=== PATIENT | male | born 1960 | race Caucasian/White ===

== ENCOUNTER → 2019-12-26 13:28 | Outpatient (CLI) | payer MEDICARE, SELFPAY ==
[2019-12-27 12:21] LABS: COVID19 Sendout Not Detected (Not Detect)
== END ==
PROVIDERS: Visit Provider Physician Assistant
DX: Z11.59 Encounter for screening for other viral diseases (principal)
CPT/HCPCS: 87635

== ENCOUNTER 2019-12-29 11:14 | Day surgery (SDC) | payer MEDICARE, SELFPAY ==
[2019-12-27 12:43] VITALS: BMI 25.7
[2019-12-29] VITALS (10 sets, daily range): BP systolic 93–142; BP diastolic 40–74; PULSE 53–61; RESP 9–20; TEMP 36.3–36.6; O2SAT 94–99; BMI 25.7
--- NOTE | 2019-12-29 | DI.RAD.S_ITS ---
PROCEDURE: XR CERVICAL SPINE 2V OR 3V INDICATIONS: C56 ANTERIOR DISCECTOMY W/FUSION AND BONE GRAFT. TECHNIQUE: 2 intraoperative fluoroscopic view(s) of the cervical spine were acquired. COMPARISON: None. FINDINGS: Bones: 2 intraoperative fluoroscopic views demonstrate instrumentation of the lower cervical spine. IMPRESSION: Intraoperative fluoroscopic views of anterior discectomy and fusion of the lower cervical spine. Dictated by: Aubree Wright M.D. on 12/29/2019 at 16:23 Approved by: Aubree Wright M.D. on 12/29/2019 at 16:24
[2019-12-29] MEDS: LACTATED RINGERS 1,000 ML 42 ML IV (11:27)
[2019-12-29] MEDS: ACETAMINOPHEN 325 MG TABLET 975 MG PO (11:28)
--- NOTE | 2019-12-29 11:47 | PM.PREOP ---
Pre-operative Note COVID-19 COVID-19 status: Negative Result date/Date tested (Pos, Neg/Pending): 12/26/19 Interval Note History & Physical reviewed/Exam performed by Physician: Yes Changes to H&P: No
[2019-12-29] MEDS: CLINDAMYCIN 900 MG/50 ML PIGGYBACK 50 MG IV (12:40)
--- NOTE | 2019-12-29 13:13 | SUR.OPER ---
Supine, head on gel donut. Arms padded with gel pads, tucked at sides, towel roll under shoulders. Safety belt at thigh. Legs uncrossed.
[2019-12-29] MEDS: BUPIVACAINE 0.25% W/ EPI 30 ML VIAL 60 ML INJ (13:22)
[2019-12-29] MEDS: SODIUM CHLORIDE 0.9% 1,000 ML, GENTAMICIN 80 MG IRR (13:24)
[2019-12-29] MEDS: THROMBIN (RECOMBINANT) 5,000 UNIT VIAL 5000 UNIT TOP (13:24)
--- NOTE | 2019-12-29 13:50 | P.OP_ITS ---
Operative Date/Time/Diagnoses Date of procedure: 12/29/19 Time of procedure: 13:50 Pre-op diagnosis: Cervical disc herniation with radiculopathy History of cervical fusion Post-op diagnosis: same Procedure & Clinicians Procedure: C5-6 ACDF with cage Iliac crest bone graft aspirate Use of microscope Same procedure as scheduled: Yes Indications: [age] year old male with intractable pain from cervical disc herniation. They had failed conservative management and requested operative intervention. Risks and benefits of surgery were discussed and appropriate consents were obtained. Surgeon: Cyrus Ramos Supply Chain Business Analyst: Beata Maddox Anesthesia Type: General Operative Notes Findings: None Closure Type: primary Specimen(s): none sent Prosthetic devices, grafts, tissues, transplants, or devices: Anmol SHANI-C Estimated Blood Loss (mL): 5 Procedure in detail: Patient was brought to the operating room and intubated on the table. A time-out was performed. Preoperative antibiotics were given. The neck was prepped and draped in the standard sterile fashion. Using a skin fold, we made a 3 cm oblique incision on the left side. We used Bovie to go through the platysma and then did a standard anterolateral blunt dissection down to the precervical fascia. Fascia was nicked and elevated up. A marker was placed and x-ray was taken for localization. We then subperiosteally elevated up the longus colli muscles. Self-retaining retractors were placed. Hickman pins were placed. We then brought in the microscope. A scalpel used to perform an annulotomy. We then used a combination of pituitaries and curettes and Kerrison to perform a complete anterior diskectomy at C5-6. We used the bur to take down the posterior osteophytes. We took down the PLL and used Kerrison to remove any posterior disc material and osteophytes. At the end we could from the nerve hook cephalad caudally and out the foramen and everything was opened. A small stab incision was made over the left anterior iliac crest. A Jamshidi needle was advanced into the pelvis and 2 mL of bone marrow was aspirated. We then used the trials. We then packed a 14 x 17 x 6 mm SHANI-C cage with Primagen bone graft and the iliac crest harvest. The cage was placed under fluoroscopic guidance. We then placed our two locking plates. The self- retaining retractors and Hickman pins were removed and final x-rays taken. The wound was irrigated. There was no bleeding. The carotid was beating nicely. The platysma was closed. The superficial was closed. The skin was closed. A sterile dressing was placed. They were then extubated and brought to recovery room with no complications. Complications: none Post-operative Condition: stable Disposition: PACU Plan for aftercare: Outpatient. Limited lifting. Soft collar for comfort.
[2019-12-29] MEDS: OXYCODONE IR 5 MG TABLET PO (14:27)
--- NOTE | 2019-12-29 15:44 | SUR.PHASEII ---
Pt dressed and ready to go, at bs and dc instructions given to both along with rxs both verbalize understanding. Sitting in [facility] waiting for friend to p/u
--- NOTE | 2019-12-29 15:52 | SUR.PHASEII ---
Pt dcd via wc in stable condition with at side to private vehicle at [facility]
== END 2019-12-29 15:52 | disposition home or self-care (01) ==
PROVIDERS: PCP Family Medicine Adult Medicine; Referring Provider Family Medicine Adult Medicine; Visit Provider Orthopaedic Surgery
PROC: (CPT 22551; principal; 2019-12-29 12:15)
DX: M48.02 Spinal stenosis, cervical region (principal); Z98.1 Arthrodesis status; I10 Essential (primary) hypertension; F41.9 Anxiety disorder, unspecified; K21.9 Gastro-esophageal reflux disease without esophagitis
CPT/HCPCS: 22551; 22853; 20939; 72040; 76000; C1776; J0330; J1100; J2405; J2704

== ENCOUNTER 2020-09-12 10:16 | Emergency (ER) | payer MEDICARE, SELFPAY ==
--- NOTE | 2020-09-12 10:18 | ED_ITS ---
HPI - Trauma General Chief Complaint: Fall Stated Complaint: THROWN OFF HORSE, LANDED ON BACK OF HEAD Time Seen by Provider: 09/12/20 10:16 Source: patient and family Mode of arrival: Ambulatory Limitations: no limitations History of Present Illness HPI narrative: 59-year-old male nonsmoker with history of hypothryoid and GERD presents with significant other and a chief complaint of a fall with a head injury suffered on Thursday. He states he was standing next to a large pony which move into him and knocked him over, causing him to fall back striking his head on the ground. He thinks he briefly lost consciousness but certainly not for very long and has been at his baseline neurologically since. He has felt a bit dizzy and nauseated since the event but has had no episodes of vomiting. He does have some midline neck pain and a history of prior cervical surgeries for disc problems. He takes no blood thinners. He occasionally has some tingling in his left arm but denies any weakness or radiation of pain. 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 MD complaint: fall Onset (ago): day(s) Loss of Consciousness: yes Location: head and neck Severity: mild Context: fall Associated symptoms: nausea and dizziness Related Data Home Medications Medication Instructions Recorded Confirmed atorvastatin 10 mg PO BEDTIME 09/08/19 09/11/20 citalopram 20 mg PO BEDTIME 09/08/19 09/11/20 fluticasone propionate [Flonase 1 - 2 spray INTRANASAL DAILY PRN 09/08/19 09/11/20 Allergy Relief] gabapentin 600 mg PO SEEINSTR 09/08/19 09/11/20 levothyroxine 75 mcg PO DAILY 09/08/19 09/11/20 hydroxyzine HCl 25 mg PO BEDTIME PRN 12/01/19 09/11/20 melatonin 6 mg PO BEDTIME 12/01/19 09/11/20 pantoprazole 40 mg PO DAILY 12/01/19 09/11/20 Previous Rx's Medication Instructions Recorded hydroxyzine pamoate [Vistaril] 25 mg PO Q4HR #15 cap 12/29/19 ondansetron 4 mg PO TID-QID PRN #10 tab 09/12/20 Allergies Allergy/AdvReac Type Severity Reaction Status Date / Time hydrocodone Allergy Pt does Verified 09/11/20 16:05 not remember reaction meloxicam Allergy Pt does Verified 09/11/20 16:05 not remember reaction cefuroxime AdvReac Severe Diarrhea Verified 09/11/20 16:05 codeine AdvReac Intermediate Makes me Verified 09/11/20 16:05 feel nervous Review of Systems Constitutional Constitutional: Denies chills, Denies fatigue, Denies fever(s), Denies frequent falls, Denies lethargy and Denies weakness Eyes Eyes: Denies change in vision, Denies eye discharge, Denies irritation and Denies loss of vision ENT Ears, Nose, Mouth, and Throat: Denies change in voice, Reports dizziness, Reports neck pain, Denies sore throat and Denies throat swelling Cardiovascular Cardiovascular: Denies chest pain, Denies irregular heart rhythm, Denies lightheadedness, Denies palpitations, Denies dyspnea, Denies dyspnea on exertion and Denies orthopnea Respiratory Respiratory: Denies cough, Denies dyspnea, Denies dyspnea on exertion and Denies wheezing Gastrointestinal Gastrointestinal: Denies abdominal pain, Denies change in bowel habits, Denies diarrhea, Reports nausea and Denies vomiting Musculoskeletal Musculoskeletal: Reports neck pain and Denies numbness Integumentary/Breasts Skin/Breast: Denies pruritus, Denies erythema, Denies rash and Reports wounds Neurologic Neurologic: Denies behavioral changes, Denies confusion, Reports dizziness, Denies frequent falls, Denies loss of vision, Denies numbness and Denies weakness Psychiatric Psychiatric: Denies anxiety, Denies behavioral changes, Denies confusion, Denies depression, Denies homicidal ideation and Denies suicidal ideation Endocrine Endocrine: Denies fatigue, Denies flushing and Denies palpitations Hematologic/Lymphatic Hematologic/Lymphatic: Denies easy bruising Allergic/Immunologic Allergic/Immunologic: Denies urticaria, Denies throat swelling and Denies wheezing Patient History Medical History Anxiety Arthritis Depression GERD (gastroesophageal reflux disease) HLD (hyperlipidemia) HTN (hypertension) Hypothyroid Left inguinal hernia Memory deficit Migraines Numbness and tingling Raynaud's disease Surgical History History of arthroscopy of left shoulder (2015) Hx of hernia repair (1996) Hx of repair of left rotator cuff (2000) S/P cervical spinal fusion (2014) Social History household members: spouse Smoking Status: Never smoker Smoking Status: Never smoker Substance Use Type: does not use Exam Narrative Exam Narrative: GENERAL: [59] year old patient appears stated age. Well- developed patient, in mild distress. GCS 15 HEAD: Small superficial abrasion on superior occiput, no bleeding, no evidence of depressed skull fracture, no hematoma. EYES: Pupils equal round and reactive. Extraocular motions intact. No scleral icterus. No injection or drainage. ENT: Nose without bleeding, purulent drainage. Throat without erythema, tonsillar hypertrophy or exudate. Airway patent. NECK: Trachea midline. Mild midline tenderness, no step-offs or crepitance, no change with axial load CARDIOVASCULAR: Regular rate and rhythm without murmurs, gallops, or rubs. RESPIRATORY: Clear to auscultation. Breath sounds equal bilaterally. No wheezes, rales, or rhonchi. GASTROINTESTINAL: Abdomen soft, non-tender, nondistended. EXTREMITIES: No edema or joint tenderness. BACK: Nontender without deformity or crepitance. No flank tenderness. NEURO: AOx3. SKIN: No rash or erythema of visible areas Initial Vital Signs Initial Vital Signs: Vital Signs Temperature 96.9 F L 09/12/20 10:25 Pulse Rate 70 09/12/20 10:25 Respiratory Rate 16 09/12/20 10:25 Blood Pressure 154/82 H 09/12/20 10:25 Pulse Oximetry 99 09/12/20 10:25 Course Orders Ordered: ED Orders 09/12/20 10:22 CT head/brain wo con Stat 09/12/20 10:44 CT cervical spine wo con Stat Discontinued Medications Diphtheria/Tetanus/Acell Pertussis (Tet,Diph,Pertuss(Acell),Vac/Pf 0.5 Ml Syringe) 0.5 ml IM .ONCE ONE Stop: 09/12/20 10:23 Last Admin: 09/12/20 10:42 Dose: 0.5 ml Documented by: Vital Signs Vital signs: Vital Signs - 8 hr 09/12/20 10:25 Temperature 96.9 F L Pulse Rate 70 Respiratory Rate 16 Blood Pressure 154/82 H Pulse Oximetry 99 MDM - Trauma Imaging Data CT scan - head: Radiologist's Impression: [address] [id number] Scan ReportSigned Patient: Jose Ayala [facility]#: [id number]: 9Acct:[id number]/Sex: 59 / MDate of Service: 09/12/20Loc: EDAccession Number: [id number] Procedure: CT head/brain wo con Ordering Provider: Gonzalo Anna D.O. PROCEDURE: CT HEAD/BRAIN WO CON INDICATIONS: Fall on Thursday with head injury, dizzy, nauseated. Positive loss of consciousness. TECHNIQUE: Noncontrast 4.5 mm thick angled axial sections acquired from the foramen magnum to the vertex, with coronal and sagittal reformats. For radiation dose reduction, the following was used: automated exposure control, adjustment of mA and/or kV according to patient size. COMPARISON: [facility], CT, BRAIN ([facility]), 02/21/2015, 19:46. FINDINGS: Image quality: Mild streak artifact can be seen through the skull base. CSF spaces: Basal cisterns are patent. No extra-axial fluid collections. The ventricles are symmetric in size and shape. Brain: No intracranial bleeds or masses. There is cerebral volume loss for a ge, with resultant ventricular and sulcal prominence. There are periventricular and deep white matter chronic small vessel ischemic changes. There is intracranial internal carotid artery atherosclerosis. Skull and face: Calvarium and visualized facial bones appear intact, without suspicious lesions. Sinuses: Visualized sinuses and mastoids are clear. IMPRESSION: No acute intracranial process is seen. Dictated by: Keagan Godinez M.D. on 09/12/2020 at 9:40 Approved by: Keagan Godinez M.D. on 09/12/2020 at 9:42 CT - cervical spine: Radiologist's Impression: [address] [id number] Scan ReportSigned Patient: Jose Ayala [facility]#: [id number]: 9Acct:[id number]/Sex: 59 / MDate of Service: 09/12/20Loc: EDAccession Number: [id number] Procedure: CT cervical spine wo con Ordering Provider: Gonzalo Anna D.O. PROCEDURE: CT CERVICAL SPINE WO CON INDICATIONS: fall on Thursday with midline neck pain TECHNIQUE: Noncontrast 3 mm thick sections acquired from the skull base to the T4 level. Sagittal and coronal reformats were then constructed. For radiation dose reduction, the following was used: automated exposure control, adjustment of mA and/or kV according to patient size. COMPARISON: None. FINDINGS: Image quality: Excellent. Bones: C5-C7 ACDF. Prominent anterior vertebral body osteophytes. Posterior disc osteophyte complex at C5-C6. Minimal central canal narrowing. Facet joint hypertrophy. No fractures or dislocations. Visualized superior ribs are intact. Soft tissues: Prevertebral soft tissues are normal in thickness. No paravertebral hematomas. No apical pneumothoraces. IMPRESSION: No acute osseous abnormality. Moderate degenerative change. C5-C7 ACDF. Dictated by: Dong Forde M.D. on 09/12/2020 at 10:59 Approved by: Dong Forde M.D. on 09/12/2020 at 11:04 Discharge Plan Departure Patient Disposition: Home Clinical Impression: Head injury due to trauma Qualifiers: Encounter type: initial encounter Qualified Code(s): S09.90XA - Unspecified injury of head, initial encounter Concussion Qualifiers: Encounter type: initial encounter Loss of consciousness presence/duration: with LOC of 30 min or less Qualified Code(s): S06.0X1A - Concussion with loss of consciousness of 30 minutes or less, initial encounter Abrasion of scalp Qualifiers: Encounter type: initial encounter Qualified Code(s): S00.01XA - Abrasion of scalp, initial encounter Instructions: Concussion Activity Restrictions/Additional Instructions: *You have been diagnosed with [mild concussion with scalp abrasion] *What to do: *Please continue to take your regular medications as directed. [ x] New medication prescriptions sent to your pharmacy: [ [facility] in [facility]] [ ] New medication written as a paper prescription [ ] No new medications given You have a slight concussion and will likely have a mild headache and some nausea for a few days. Avoiding highly stimulating activities and even TV or computers may be helpful in minimizing your symptoms. Avoid activities that will put you at risk for another head injury for at least a week. You can take tylenol or motrin for headache or the prescription provided for nausea/vomiting. Return for worsening or persistent symptoms *Please follow up with your primary care provider in 2-3 days, call for an appointment. Let them know you were seen in the Emergency Department and that we ask that you be seen in follow up. We will electronically transmit a record of today's note if your PCP is in our system *If you do not have a primary care provider please contact the [facility] Resource line at [phone]. They will ask some questions about your medical history and help get you set up with a doctor in the community. *Return to Emergency Department if you should have any new, worsening or concerning symptoms, such as [fever greater than 101 F, shaking chills, worsening pain, persistent vomiting or other bothersome symptoms] Prescriptions: New ondansetron 4 mg tablet,disintegrating 4 mg PO TID-QID PRN (Reason: nausea and vomiting) Qty: 10 RF: 0 No Action atorvastatin 10 mg Tablet 10 mg PO BEDTIME RF: 0 levothyroxine 75 mcg Tablet 75 mcg PO DAILY RF: 0 citalopram 20 mg Tablet 20 mg PO BEDTIME RF: 0 gabapentin 300 mg Capsule 600 mg PO SEEINSTR RF: 0 fluticasone propionate [Flonase Allergy Relief] 50 mcg/actuation [place],Suspension 1 - 2 spray INTRANASAL DAILY PRN (Reason: Allergies) RF: 0 melatonin 3 mg Tablet 6 mg PO BEDTIME RF: 0 pantoprazole 40 mg Tablet,Delayed Release (Dr/Ec) 40 mg PO DAILY RF: 0 hydroxyzine HCl 25 mg Tablet 25 mg PO BEDTIME PRN (Reason: Anxiety) RF: 0 hydroxyzine pamoate [Vistaril] 25 mg capsule 25 mg PO Q4HR Qty: 15 RF: 0 Referrals: Isaac Major DO [Primary Care Provider] -
--- NOTE | 2020-09-12 10:22 | DI.CT.S_ITS ---
PROCEDURE: CT HEAD/BRAIN WO CON INDICATIONS: Fall on Thursday with head injury, dizzy, nauseated. Positive loss of consciousness. TECHNIQUE: Noncontrast 4.5 mm thick angled axial sections acquired from the foramen magnum to the vertex, with coronal and sagittal reformats. For radiation dose reduction, the following was used: automated exposure control, adjustment of mA and/or kV according to patient size. COMPARISON: [facility], CT, BRAIN ([facility]), 02/21/2015, 19:46. FINDINGS: Image quality: Mild streak artifact can be seen through the skull base. CSF spaces: Basal cisterns are patent. No extra-axial fluid collections. The ventricles are symmetric in size and shape. Brain: No intracranial bleeds or masses. There is cerebral volume loss for age, with resultant ventricular and sulcal prominence. There are periventricular and deep white matter chronic small vessel ischemic changes. There is intracranial internal carotid artery atherosclerosis. Skull and face: Calvarium and visualized facial bones appear intact, without suspicious lesions. Sinuses: Visualized sinuses and mastoids are clear. IMPRESSION: No acute intracranial process is seen. Dictated by: Keagan Godinez M.D. on 09/12/2020 at 9:40 Approved by: Keagan Godinez M.D. on 09/12/2020 at 9:42
[2020-09-12 10:25] VITALS: BP 154/82; PULSE 70; RESP 16; TEMP 36.1; O2SAT 99; BMI 26.6
[2020-09-12] MEDS: TET,DIPH,PERTUSS(ACELL),VAC/PF 0.5 ML SYRINGE IM (10:42)
--- NOTE | 2020-09-12 10:44 | DI.CT.S_ITS ---
PROCEDURE: CT CERVICAL SPINE WO CON INDICATIONS: fall on Thursday with midline neck pain TECHNIQUE: Noncontrast 3 mm thick sections acquired from the skull base to the T4 level. Sagittal and coronal reformats were then constructed. For radiation dose reduction, the following was used: automated exposure control, adjustment of mA and/or kV according to patient size. COMPARISON: None. FINDINGS: Image quality: Excellent. Bones: C5-C7 ACDF. Prominent anterior vertebral body osteophytes. Posterior disc osteophyte complex at C5-C6. Minimal central canal narrowing. Facet joint hypertrophy. No fractures or dislocations. Visualized superior ribs are intact. Soft tissues: Prevertebral soft tissues are normal in thickness. No paravertebral hematomas. No apical pneumothoraces. IMPRESSION: No acute osseous abnormality. Moderate degenerative change. C5-C7 ACDF. Dictated by: Dong Forde M.D. on 09/12/2020 at 10:59 Approved by: Dong Forde M.D. on 09/12/2020 at 11:04
[2020-09-12 11:28] VITALS: BP 122/65; PULSE 57; RESP 16; O2SAT 96
== END 2020-09-12 11:28 | disposition home or self-care (01) ==
PROVIDERS: Emergency Provider Emergency Medicine; PCP Family Medicine Adult Medicine
DX: S06.0X1A Concussion with loss of consciousness of 30 minutes or less, initial encounter (principal); R42 Dizziness and giddiness; V80.010A Animal-rider injured by fall from or being thrown from horse in noncollision accident, initial encounter; Z23 Encounter for immunization
CPT/HCPCS: 70450; 72125; 90471; 99284; 90715

== ENCOUNTER → 2021-04-09 13:42 | Outpatient (CLI) | payer MEDICARE, MEDICAID, SELFPAY ==
--- NOTE | 2021-04-09 13:48 | DI.MRI.S_ITS ---
PROCEDURE: MR CERVICAL SPINE WO CON INDICATIONS: neck pain;headaches;left arm parathesias weakness;hx surg TECHNIQUE: Noncontrast sagittal T1 spin echo and T2 fast spin echo, sagittal STIR, foraminal oblique sagittal T2 fast spin echo, and axial gradient echo or T2 fast spin echo through the cervical spine. COMPARISON: [facility], MR, MR CERVICAL SPINE WITHOUT CONTRAST, 05/11/2019, 14:14. [facility], CT, CT CERVICAL SPINE WO CON, 09/12/2020, 10:33. FINDINGS: Image quality: Excellent. Alignment and Curvature: There is loss of normal cervical lordosis. There is mild grade 1 anterolisthesis of C3 on C4. Bone Marrow: Marrow demonstrates normal overall signal. Hardware revision with anterior fusion of C5-C7 has been performed. Mild reactive signal throughout the endplates of the cervical spine. Spinal Cord: Visualized spinal cord has normal size and signal. No cerebellar tonsillar herniation. Paraspinous Soft Tissues: No paravertebral masses. Prevertebral soft tissues are normal in thickness. C2-C3: Moderate disc desiccation. Mild diffuse disc bulge. Mild facet and uncovertebral hypertrophy bilaterally. Mild canal stenosis is unchanged. There is increased, moderate left foraminal stenosis. No change in mild right foraminal stenosis. C3-C4: Mild disc height loss. Moderate disc desiccation. Mild diffuse disc bulge. Moderate facet and uncovertebral hypertrophy bilaterally. Severe right and mild left foraminal stenosis. Right C4 nerve root compression. No significant change. C4-C5: Mild disc height loss. Moderate disc desiccation. Mild diffuse disc bulge. Mild facet and uncovertebral hypertrophy bilaterally. Mild canal stenosis. Mild left greater than right foraminal stenosis. No significant change. C5-C6: Status post fusion. Mild residual disc bulge/osteophyte with superimposed right paracentral protrusion. Mild canal stenosis. Minimal right cord flattening, decreased from the prior examination. No change in moderate bilateral foraminal stenosis.. Moderate facet and uncovertebral hypertrophy bilaterally. C6-C7: Status post fusion. Mild residual disc bulge/osteophyte. Moderate facet and uncovertebral hypertrophy bilaterally. Mild canal stenosis. Moderate to severe left and mild right foraminal stenosis. Left C7 nerve root compression. No significant change. C7-T1: Mild disc desiccation and diffuse disc bulge. Mild facet and uncovertebral hypertrophy bilaterally. Mild canal stenosis. Moderate bilateral foraminal stenosis. No significant change. IMPRESSION: 1. Postsurgical sequelae. 2. Multilevel degenerative disc and facet disease, as well as uncovertebral hypertrophy. 3. Mild multilevel canal stenosis. Decreased, minimal cord flattening at C5-C6. 4. Multilevel foraminal stenoses, worst at C3-C4 and C6-C7 where there is associated intraforaminal nerve root compression. Recommend correlation with clinical symptoms to ascertain relevance of these findings. Dictated by: America Daniel M.D. on 04/10/2021 at 8:34 Approved by: America Daniel M.D. on 04/10/2021 at 8:39
== END ==
PROVIDERS: PCP Physician Assistant; Referring Provider Physician Assistant; Visit Provider Physician Assistant
DX: M50.11 Cervical disc disorder with radiculopathy, high cervical region (principal); M48.02 Spinal stenosis, cervical region; M54.81 Occipital neuralgia; R51.9 Headache, unspecified; Z98.1 Arthrodesis status
CPT/HCPCS: 72141

== ENCOUNTER → 2021-09-12 11:06 | Outpatient (CLI) | payer MEDICARE, MEDICAID, SELFPAY ==
[2021-09-12 18:41] LABS: Add Manual Diff / Slide Review NO; Basophils Absolute Auto 100 /uL (0-100); Basophils Percent Auto 0.8 % (0-2); Eosinophils Absolute Auto 100 /uL (0-450); Eosinophils Percent Auto 1.8 % (2-4); Hematocrit 41.4 % (41-53); Hemoglobin 14.4 g/dL (13.5-17.5); Lymphocytes Absolute Auto 1400 /uL (1100-4500); Lymphocytes Percent Auto 22.6 % (25-40); Mean Corpuscular HGB Conc 34.8 % (30-36); Mean Corpuscular Volume 89.1 fL (80-100); Monocytes Absolute Auto 400 /uL (0-900); Monocytes Percent Auto 6.8 % (3-14); Neutrophils Absolute Auto 4300 /uL (1500-7000); Platelet Count 165 X10^3/uL (150-400); Red Blood Cell Count 4.64 X10^6/uL (4.5-5.9); Red Cell Distribution Width 13.7 % (11.6-14.8); White Blood Cell Count 6.4 X10^3/uL (4.5-11.0)
[2021-09-12 18:51] LABS: Alanine Aminotransferase 24 IU/L (<50); Albumin 4.3 g/dL (3.5-5.0); Albumin Globulin Ratio 1.7 (1.0-2.8); Alkaline Phosphatase 68 U/L (38-126); Aspartate Aminotransferase 34 IU/L (17-59); Bilirubin Total 0.6 mg/dL (0.2-1.3); Blood Urea Nitrogen 16 mg/dL (9-20); Calcium 8.8 mg/dL (8.4-10.2); Carbon Dioxide 30 mmol/L (22-32); Chloride 104 mmol/L (98-107); Cholesterol 164 mg/dL (140-199); Estimated Glomerular Filt Rate > 60 mL/min (>60); Globulin 2.6 g/dL (1.7-4.1); Glucose 89 mg/dL (80-110); HDL Cholesterol 53 mg/dL (40-60); HEMOLYSIS < 15 (0-50); LDL Cholesterol Calculated 96 mg/dL (<100); Potassium 4.1 mmol/L (3.4-5.1); Sodium 139 mmol/L (137-145); Total Protein 6.9 g/dL (6.3-8.2); Triglycerides 74 mg/dL (35-150)
[2021-09-12 19:14] LABS: TSH w/ Reflex to FT4 1.58 uIU/mL (0.47-4.68)
[2021-09-12 19:18] LABS: Prostate Specific Antigen 1.36 ng/mL (0.10-4.00)
== END ==
PROVIDERS: PCP Physician Assistant; Visit Provider Physician Assistant
DX: E78.5 Hyperlipidemia, unspecified (principal); I10 Essential (primary) hypertension; Z12.5 Encounter for screening for malignant neoplasm of prostate; Z79.899 Other long term (current) drug therapy; E03.9 Hypothyroidism, unspecified
CPT/HCPCS: 80053; 80061; 84153; 84443; 85025

== ENCOUNTER → 2021-09-27 14:29 | Outpatient (CLI) | payer MEDICARE, MEDICAID, SELFPAY ==
--- NOTE | 2021-09-27 14:30 | DI.US.S_ITS ---
PROCEDURE: US EXTREMITY NONVASC LOWER LT INDICATIONS: ONGOING LEFT CALF PAIN, S/P SURGERY TECHNIQUE: Real-time scanning was performed of the left posterior mid calf , with image documentation. COMPARISON: None. FINDINGS: No mass, fluid collection or lymphadenopathy seen in the region of interest. IMPRESSION: No sonographic abnormality. Dictated by: Huy CAGLE Interpreted: America Daniel MD on 09/27/2021 at 15:05 Approved by: America Daniel M.D. on 09/27/2021 at 15:33
== END ==
PROVIDERS: PCP Physician Assistant; Referring Provider Physician Assistant; Visit Provider Physician Assistant
DX: M79.662 Pain in left lower leg (principal); Z98.890 Other specified postprocedural states
CPT/HCPCS: 76882

== ENCOUNTER → 2021-10-29 10:12 | Outpatient (CLI) | payer MEDICARE, MEDICAID, SELFPAY ==
[2021-10-29 20:06] LABS: Add Manual Diff / Slide Review NO; Basophils Absolute Auto 0 /uL (0-100); Basophils Percent Auto 0.3 % (0-2); Eosinophils Absolute Auto 100 /uL (0-450); Eosinophils Percent Auto 2.3 % (2-4); Hematocrit 42.1 % (41-53); Hemoglobin 14.4 g/dL (13.5-17.5); Lymphocytes Absolute Auto 1600 /uL (1100-4500); Lymphocytes Percent Auto 29.4 % (25-40); Mean Corpuscular HGB Conc 34.2 % (30-36); Mean Corpuscular Hemoglobin 30.7 PG (26-34); Mean Corpuscular Volume 89.6 fL (80-100); Monocytes Absolute Auto 500 /uL (0-900); Monocytes Percent Auto 9.9 % (3-14); Neutrophils Absolute Auto 3100 /uL (1500-7000); Neutrophils Percent Auto 58.1 % (50-75); Platelet Count 136 X10^3/uL (150-400); Red Cell Distribution Width 14.2 % (11.6-14.8); White Blood Cell Count 5.3 X10^3/uL (4.5-11.0)
[2021-10-29 20:11] LABS: Alanine Aminotransferase 25 IU/L (<50); Albumin 4.3 g/dL (3.5-5.0); Albumin Globulin Ratio 1.7 (1.0-2.8); Alkaline Phosphatase 66 U/L (38-126); Amylase 143 U/L (30-110); Aspartate Aminotransferase 31 IU/L (17-59); BUN Creatinine Ratio 10.4 (6-22); Bilirubin Total 0.5 mg/dL (0.2-1.3); Blood Urea Nitrogen 10 mg/dL (9-20); Calcium 8.9 mg/dL (8.4-10.2); Carbon Dioxide 30 mmol/L (22-32); Chloride 101 mmol/L (98-107); Cholesterol 140 mg/dL (140-199); Estimated Glomerular Filt Rate > 60 mL/min (>60); Globulin 2.6 g/dL (1.7-4.1); Glucose 89 mg/dL (80-110); HDL Cholesterol 53 mg/dL (40-60); HEMOLYSIS < 15 (0-50); LDL Cholesterol Calculated 76 mg/dL (<100); Lipase 128 U/L (23-300); Sodium 138 mmol/L (137-145); Total Protein 6.9 g/dL (6.3-8.2); Triglycerides 54 mg/dL (35-150)
== END ==
PROVIDERS: PCP Physician Assistant; Visit Provider Physician Assistant
DX: R10.9 Unspecified abdominal pain (principal); E78.5 Hyperlipidemia, unspecified
CPT/HCPCS: 80053; 80061; 82150; 83690; 85025

== ENCOUNTER → 2021-10-30 12:56 | Outpatient (CLI) | payer MEDICARE, MEDICAID, SELFPAY ==
--- NOTE | 2021-10-30 | DI.CT.S_ITS ---
PROCEDURE: CT IVP A/P W/WO INDICATIONS: DECREASED URINE OUTPUT TECHNIQUE: Optional 5 mm thick noncontrast images acquired from the diaphragm to the symphysis pubis. After the administration of intravenous contrast, 5 mm thick images acquired from the diaphragm to the symphysis pubis after a 10-minute delay. 2 mm thick coronal and sagittal reformats were then performed of the kidneys and ureters. For radiation dose reduction, the following was used: automated exposure control, adjustment of mA and/or kV according to patient size. COMPARISON: [facility], CT, CT ABD PELVIS W CON, 02/25/2016, 17:13. [facility], CT, CT KUB, 01/13/2018, 14:49. FINDINGS: Image quality: Excellent. Lung bases: Lung bases are clear. Heart size is normal. Small hiatal hernia. Urinary system: Both kidneys are normal in size, without hydronephrosis or nephrolithiasis on pre-contrast images. No perinephric fat stranding. There is normal bilateral renal enhancement. Renal calyces appear normal in morphology when filled with contrast. Opacified portions of both ureters demonstrate normal caliber. Bladder wall is thickened. No calcified bladder stones. Prostate is enlarged. Other solid organs: Liver is normal in size and enhancement. Gallbladder is normal. Biliary system is non dilated. Pancreas enhances normally. Spleen is normal in size and enhancement. No adrenal nodules. Peritoneum and bowel: Bowel loops demonstrate normal wall thickness and caliber. No free fluid or air. Nodes and vessels: No retroperitoneal or mesenteric adenopathy by size criteria. Aorta and inferior vena cava are normal in size. Abdominal wall: No ventral hernias. Pelvis: No pathologic free pelvic fluid. No inguinal adenopathy. Small fat containing inguinal hernias are noted bilaterally. Bones: No suspicious bony lesions. No vertebral body compression fractures. IMPRESSION: 1. Mild bladder wall thickening. The finding may be secondary to chronic bladder outlet obstruction or cystitis. Recommend clinical correlation. 2. Enlarged prostate. Dictated by: Randi Horowitz M.D. on 10/30/2021 at 16:37 Approved by: Randi Horowitz M.D. on 10/31/2021 at 9:15
== END ==
PROVIDERS: PCP Physician Assistant; Referring Provider Physician Assistant; Visit Provider Physician Assistant
DX: N40.0 Benign prostatic hyperplasia without lower urinary tract symptoms (principal); R34 Anuria and oliguria
CPT/HCPCS: 74178; Q9967

== ENCOUNTER → 2022-06-03 11:34 | Outpatient (CLI) | payer MEDICARE, MEDICAID, SELFPAY ==
--- NOTE | 2022-06-03 11:37 | DI.MRI.S_ITS ---
PROCEDURE: MR HEAD/BRAIN WO/W CON INDICATIONS: worsening dizziness, vertigo, HAs, balance TECHNIQUE: Noncontrast axial T1 spin echo, axial T2 fast spin echo, sagittal and axial FLAIR, coronal T2 fast spin echo, axial gradient echo, axial diffusion and ADC through the brain. After the administration of contrast, axial and coronal and sagittal T1 spin echo with fat saturation through the brain. COMPARISON: [facility], MR, MR BRAIN WO CON, 02/21/2015, 21:16. [facility], CT, CT HEAD/BRAIN WO CON, 09/12/2020, 10:33. FINDINGS: Image quality: Excellent. CSF spaces: Basal cisterns are patent. No extra-axial fluid collections. Ventricles are normal in size and shape. Brain: No midline shift. No intracranial bleeds or masses. No abnormal intracranial enhancement. There is cerebral volume loss for age. There is periventricular white matter chronic small vessel ischemic change. The brainstem appears normal. Diffusion-weighted images demonstrate no acute ischemic insults. No chronic ischemic insults. Normal intravascular flow voids are present. Skull and face: Calvarial marrow is normal in signal. Orbits appear normal. Sinuses: Sinuses and mastoids appear clear. IMPRESSION: No imaging explanation is found for this patient's presenting symptoms. No findings of acute or subacute infarction can be seen. No masses or abnormal enhancement can be seen. Dictated by: Keagan Godinez M.D. on 06/03/2022 at 13:06 Approved by: Keagan Godinez M.D. on 06/03/2022 at 13:08
[2022-06-03 12:03] LABS: Add Manual Diff / Slide Review NO; Basophils Absolute Auto 100 /uL (0-100); Basophils Percent Auto 0.8 % (0-2); Eosinophils Absolute Auto 100 /uL (0-450); Eosinophils Percent Auto 1.9 % (2-4); Hematocrit 42.4 % (41-53); Hemoglobin 14.3 g/dL (13.5-17.5); Lymphocytes Absolute Auto 1500 /uL (1100-4500); Lymphocytes Percent Auto 21.7 % (25-40); Mean Corpuscular HGB Conc 33.8 % (30-36); Mean Corpuscular Hemoglobin 30.7 PG (26-34); Mean Corpuscular Volume 90.7 fL (80-100); Monocytes Absolute Auto 600 /uL (0-900); Monocytes Percent Auto 8.4 % (3-14); Neutrophils Absolute Auto 4800 /uL (1500-7000); Neutrophils Percent Auto 67.2 % (50-75); Platelet Count 153 X10^3/uL (150-400); Red Blood Cell Count 4.67 X10^6/uL (4.5-5.9); Red Cell Distribution Width 13.9 % (11.6-14.8); White Blood Cell Count 7.1 X10^3/uL (4.5-11.0)
[2022-06-03 12:17] LABS: Alanine Aminotransferase 21 IU/L (<50); Albumin 4.3 g/dL (3.5-5.0); Albumin Globulin Ratio 1.5 (1.0-2.8); Alkaline Phosphatase 59 U/L (38-126); Amylase 151 U/L (30-110); Aspartate Aminotransferase 25 IU/L (17-59); BUN Creatinine Ratio 13.8 (6-22); Bilirubin Total 0.5 mg/dL (0.2-1.3); Blood Urea Nitrogen 13 mg/dL (9-20); Calcium 8.9 mg/dL (8.4-10.2); Carbon Dioxide 30 mmol/L (22-32); Chloride 101 mmol/L (98-107); Estimated Glomerular Filt Rate > 60 mL/min (>60); Globulin 2.9 g/dL (1.7-4.1); Glucose 95 mg/dL (80-110); HEMOLYSIS < 15 (0-50); Potassium 4.5 mmol/L (3.4-5.1); Sodium 139 mmol/L (137-145); Total Protein 7.2 g/dL (6.3-8.2)
[2022-06-03 12:46] LABS: Appearance Urine UA CLEAR; Bilirubin Urine UA NEGATIVE (NEGATIVE); Color Urine UA YELLOW; Glucose Urine UA NEGATIVE (Negative); Ketones Urine UA NEGATIVE (NEGATIVE); Leukocyte Esterase Urine UA NEGATIVE (NEGATIVE); Nitrite Urine UA NEGATIVE (Negative); Occult Blood Urine UA NEGATIVE (Negative); Prostate Specific Antigen Scrn 1.79 ng/mL (0.1-4.0); Protein Urine UA NEGATIVE (Negative); Urobilinogen Urine UA 0.2 E.U./dL (0.2)
--- NOTE | 2022-06-03 13:09 | DI.CT.S_ITS ---
PROCEDURE: CT PELVIS W CON INDICATIONS: pelvic pain. hx enlarged prostate TECHNIQUE: After the administration of intravenous contrast, 5 mm thick sections acquired from the iliac crests to the symphysis. 5 mm coronal and sagittal reformats were acquired. For radiation dose reduction, the following was used: automated exposure control, adjustment of mA and/or kV according to patient size. COMPARISON: None. FINDINGS: Image quality: Excellent. Peritoneum and bowel: Bowel loops demonstrate normal wall thickness and caliber. No free fluid or air. Genitourinary: Bladder wall thickness is normal. Prostatomegaly; the prostate measures 5.0 by 4.3 x 4.0 cm. Nodes and vessels: No iliac, pelvic, or inguinal adenopathy by size criteria. Iliac vessels demonstrate normal size and enhancement. Bones: No suspicious bony lesions. Miscellaneous: Fat within the inguinal canals. IMPRESSION: 1. No acute abnormality to explain the patient's pelvic pain. 2. Moderate prostatomegaly without secondary evidence of chronic outlet obstruction. Dictated by: Jesse Banuelos M.D. on 06/03/2022 at 13:27 Approved by: Jesse Banuelos M.D. on 06/03/2022 at 13:32
[2022-06-03 13:12] LABS: Bacteria Urine None Seen; Culture Indicated Urine Cult Not Indicated; RBC Urine None Seen (0-5/HPF); Squamous Epithelial Cell Urine None Seen (0-5/HPF); WBC Urine None Seen (0-5/HPF)
[2022-06-03 13:39] LABS: TSH w/ Reflex to FT4 1.89 uIU/mL (0.47-4.68)
== END ==
PROVIDERS: PCP Physician Assistant; Referring Provider Physician Assistant; Visit Provider Physician Assistant
DX: R42 Dizziness and giddiness (principal); R51.9 Headache, unspecified; R10.2 Pelvic and perineal pain; N40.0 Benign prostatic hyperplasia without lower urinary tract symptoms; E03.9 Hypothyroidism, unspecified; R26.89 Other abnormalities of gait and mobility; R10.12 Left upper quadrant pain; R74.8 Abnormal levels of other serum enzymes; R39.89 Other symptoms and signs involving the genitourinary system; G89.29 Other chronic pain; Z12.5 Encounter for screening for malignant neoplasm of prostate; Z87.828 Personal history of other (healed) physical injury and trauma; Z87.898 Personal history of other specified conditions
CPT/HCPCS: 36415; 70553; 72193; 80053; 81001; 82150; 84443; 85025; G0103; Q9967

== ENCOUNTER → 2022-07-03 13:33 | Outpatient (CLI) | payer MEDICARE, SELFPAY ==
[2022-07-03 20:03] LABS: Amylase 128 U/L (30-110); Lipase 95 U/L (23-300)
[2022-07-05 22:48] LABS: Tissue Transglutaminase IgA <2 U/mL (0-3); Tissue Transglutaminase IgG <2 U/mL (0-5)
[2022-07-08 16:03] LABS: Albumin 3.9 g/dL (2.9-4.4); Alpha 1 Globulin 0.2 g/dL (0.0-0.4); Alpha 2 Globulin 0.6 g/dL (0.4-1.0); Beta 1 Globulin 0.9 g/dL (0.7-1.3); Gamma Globulin 1.1 g/dL (0.4-1.8); Protein, Total 6.6 g/dL (6.0-8.5)
[2022-07-08 18:07] LABS: ANA Screen, IFA Negative (.)
== END ==
PROVIDERS: PCP Physician Assistant; Visit Provider Family Medicine
DX: R11.0 Nausea (principal); R19.7 Diarrhea, unspecified; R63.4 Abnormal weight loss
CPT/HCPCS: 82150; 83516; 83690; 84155; 84165; 86038

== ENCOUNTER → 2022-08-01 13:21 | Outpatient (CLI) | payer MEDICARE, SELFPAY ==
[2022-08-01 18:46] LABS: Add Manual Diff / Slide Review NO; Basophils Absolute Auto 0 /uL (0-100); Basophils Percent Auto 0.5 % (0-2); Eosinophils Absolute Auto 100 /uL (0-450); Eosinophils Percent Auto 0.6 % (2-4); Hematocrit 44.3 % (41-53); Lymphocytes Absolute Auto 1400 /uL (1100-4500); Lymphocytes Percent Auto 15.9 % (25-40); Mean Corpuscular HGB Conc 33.9 % (30-36); Mean Corpuscular Hemoglobin 31.1 PG (26-34); Mean Corpuscular Volume 91.7 fL (80-100); Monocytes Absolute Auto 600 /uL (0-900); Monocytes Percent Auto 6.5 % (3-14); Neutrophils Absolute Auto 6600 /uL (1500-7000); Neutrophils Percent Auto 76.5 % (50-75); Platelet Count 152 X10^3/uL (150-400); Red Blood Cell Count 4.83 X10^6/uL (4.5-5.9); Red Cell Distribution Width 13.7 % (11.6-14.8); White Blood Cell Count 8.7 X10^3/uL (4.5-11.0)
[2022-08-01 19:01] LABS: Alanine Aminotransferase 24 IU/L (<50); Albumin 4.3 g/dL (3.5-5.0); Albumin Globulin Ratio 1.5 (1.0-2.8); Alkaline Phosphatase 68 U/L (38-126); Amylase 108 U/L (30-110); Aspartate Aminotransferase 28 IU/L (17-59); BUN Creatinine Ratio 16.8 (6-22); Bilirubin Total 0.8 mg/dL (0.2-1.3); Blood Urea Nitrogen 17 mg/dL (9-20); Calcium 9.2 mg/dL (8.4-10.2); Carbon Dioxide 29 mmol/L (22-32); Chloride 100 mmol/L (98-107); Estimated Glomerular Filt Rate > 60 mL/min (>60); Globulin 2.8 g/dL (1.7-4.1); Glucose 159 mg/dL (80-110); HEMOLYSIS < 15 (0-50); Lipase 90 U/L (23-300); Potassium 4.4 mmol/L (3.4-5.1); Sodium 136 mmol/L (137-145); Total Protein 7.1 g/dL (6.3-8.2)
== END ==
PROVIDERS: PCP Physician Assistant; Visit Provider Physician Assistant Medical
DX: R11.0 Nausea (principal); R19.7 Diarrhea, unspecified; R74.8 Abnormal levels of other serum enzymes
CPT/HCPCS: 80053; 82150; 83690; 85025

== ENCOUNTER → 2022-08-05 15:35 | Outpatient (CLI) | payer MEDICARE, SELFPAY ==
[2022-08-05 20:51] LABS: Clostridium Difficile Tox PCR Negative for C. diff (Negative)
== END ==
PROVIDERS: PCP Physician Assistant; Visit Provider Physician Assistant Medical
DX: R11.0 Nausea (principal); R19.7 Diarrhea, unspecified; R74.8 Abnormal levels of other serum enzymes
CPT/HCPCS: 87045; 87177; 87493; 87899

== ENCOUNTER → 2022-12-01 12:43 | Outpatient (CLI) | payer MEDICARE, SELFPAY ==
--- NOTE | 2022-12-01 12:44 | DI.RAD.S_ITS ---
PROCEDURE: XR CERVICAL SPINE 2V OR 3V INDICATIONS: needs current xray imaging to see specialist. TECHNIQUE: Three view(s) of the cervical spine were acquired. COMPARISON: [facility], CR, XR CERVICAL SPINE 6+ VIEWS, 05/02/2020, 9:16. [facility], CR, XR CERVICAL SPINE 2V OR 3V, 12/29/2019, 13:41. FINDINGS: Bones: No fractures or dislocations to the T1 level. Osseous and hardware fusion anteriorly from C5 through C7 with vertebral body ankylosis. Prominent anterior endplate spurs at C4-5 and mildly at C2-3 and C3-4. Bone alignment is normal. No suspicious bony lesions. Soft tissues: No prevertebral soft tissue swelling. IMPRESSION: 1. Appropriate appearance of hardware and osseous fusion from C5 through C7. 2. Anterior bridging osteophytes, most severe at C4-5. Dictated by: Mary Carmona M.D. on 12/01/2022 at 17:46 Approved by: Mary Carmona M.D. on 12/01/2022 at 17:49
--- NOTE | 2022-12-01 13:02 | DI.MRI.S_ITS ---
PROCEDURE: MR CERVICAL SPINE WO/W CON INDICATIONS: on going neck pain, triggers headaches and radicular pain L TECHNIQUE: Noncontrast sagittal T1 spin echo and T2 fast spin echo, sagittal STIR, foraminal oblique sagittal T2 fast spin echo, axial gradient echo or T2 fast spin echo through the cervical spine. After the administration of contrast, axial and sagittal T1 spin echo with fat saturation through the cervical spine. COMPARISON: [facility], MR, MR CERVICAL SPINE WO CON, 04/09/2021, 17:33. [facility], CT, CT CERVICAL SPINE WO CON, 09/12/2020, 10:33. FINDINGS: Image quality: Excellent. Alignment and curvature: Remote ACDF at C5-C6 and C6-C7. Trace anterolisthesis of C4 on C5. Trace anterolisthesis of C3 on C4. Marrow: Marrow is normal in overall signal, without suspicious enhancement. Spinal cord: Visualized spinal cord has normal size and signal. No cerebellar tonsillar herniation. No abnormal intramedullary enhancement. Paraspinous soft tissues: No paravertebral masses or suspicious enhancement. C2-3: Disc bulge. No canal stenosis. Bilateral facet hypertrophy. [id number] bilateral foraminal narrowing. C3-4: Disc bulge. Trace anterolisthesis of C3 on C4. No canal stenosis. [id number] left foraminal stenosis. C4-5: Disc bulge. No canal stenosis. Moderate left foraminal narrowing with mild flattening deformity on the exiting left C5 nerve root. C5-6: Fused. Again noted is right paracentral osteophyte. It minimally indents on the cord. No central canal stenosis. Right uncovertebral joint hypertrophy. Moderate to severe right foraminal narrowing with mild right foraminal C6 nerve root impingement. Moderate left foraminal narrowing with mild flattening deformity on the exiting left C6 nerve root. C6-7: Fused. No canal stenosis. Left uncovertebral joint hypertrophy. Moderate left foraminal narrowing with mild flattening deformity on the exiting left C7 nerve root. C7-T1: No canal stenosis or foraminal stenosis. IMPRESSION: 1. Remote ACDF at C5 through C7. 2. No canal stenosis. 3. Multilevel foraminal narrowing as described above. Findings include moderate left foraminal narrowing at C4-C5, moderate to severe right foraminal narrowing and moderate left foraminal narrowing at C5-C6, and moderate left foraminal narrowing at C6-C7. Dictated by: Milton Messer M.D. on 12/01/2022 at 15:02 Approved by: Milton Messer M.D. on 12/01/2022 at 15:17
== END ==
PROVIDERS: PCP Physician Assistant; Referring Provider Physician Assistant; Visit Provider Physician Assistant
DX: M54.12 Radiculopathy, cervical region (principal); M48.02 Spinal stenosis, cervical region; M25.78 Osteophyte, vertebrae; M54.2 Cervicalgia; Z98.1 Arthrodesis status
CPT/HCPCS: 72040; 72156